=== PATIENT | female | born 1985 | race Caucasian/White ===

== ENCOUNTER 2018-08-13 17:06 | Emergency (ER) | payer OTHER ==
[~2018-08-13] VITALS: Ht 162.6 cm; Wt 72.7 kg
[2018-08-13 17:07] VITALS: BP 157/80
[2018-08-13] MEDS ORDERED: ACETAMINOPHEN TAB 650MG DOSE (2X325MG) PO ONE (18:00)
== END 2018-08-13 18:11 | disposition home or self-care (01) ==
LOC: M ED 17:06
DX: S09.90XA Unspecified injury of head, initial encounter (principal); W00.0XXA Fall on same level due to ice and snow, initial encounter; Y92.89 Other specified places as the place of occurrence of the external cause; R51 Headache

== ENCOUNTER 2020-02-26 18:22 | Emergency (ER) | payer OTHER ==
[~2020-02-26] VITALS: Ht 160 cm; Wt 69.2 kg
[2020-02-26] MEDS ORDERED: IBUPROFEN 800 MG TAB PO ONE (19:00)
--- NOTE | 2020-02-26 20:07 | REPVR ---
PROCEDURE INFORMATION: Exam: XR Left Ankle Exam date and time: 02/26/2020 7:07 PM Age: 34 years old Clinical indication: Pain; Ankle; Left; Additional info: Fell/pain/swelling TECHNIQUE: Imaging protocol: XR Left ankle. Views: 3 or more views. COMPARISON: No relevant prior studies available. FINDINGS: Bones/joints: The ankle mortise is symmetric and intact. Normal bone density. No fracture or dislocation. Soft tissues: Swelling of the lateral ankle soft tissues. Tiny ankle joint effusion. IMPRESSION: No fracture. Electronically signed by: Carlin Maria On 02/26/2020 20:07:08 PM
[2020-02-26 21:06] VITALS: BP 131/75
== END 2020-02-26 21:07 | disposition home or self-care (01) ==
LOC: M ED 18:22
DX: S93.402A Sprain of unspecified ligament of left ankle, initial encounter (principal); M25.472 Effusion, left ankle; X50.1XXA Overexertion from prolonged static or awkward postures, initial encounter; Y92.830 Public park as the place of occurrence of the external cause; Y93.01 Activity, walking, marching and hiking; Y99.8 Other external cause status